=== PATIENT | female | born 1980 | race African-American/Black ===

== ENCOUNTER 2021-08-09 14:50 | Emergency (ER) | payer MEDICAID, SELFPAY ==
--- NOTE | ~2021-08-09 | XR_ITS ---
EXAMINATION:XR ankle LT 2V, XR foot LT 2V VIEWS ACQUIRED: Frontal lateral and oblique CLINICAL INFORMATION: Reason for Exam injury COMPARISON: None available at the time of this dictation. FINDINGS: There is soft tissue swelling around lateral malleolus. There is no evidence of acute fracture or dislocation. Intertarsal, tarsometatarsal, metatarsophalangeal and interphalangeal joints are intact. Surrounding soft tissues is normal. , Ankle mortise is preserved. Distal tibia and fibula included are normal. XR/XR ankle LT 2V IMPRESSION: Soft tissue swelling around lateral malleolus. Radiograph otherwise normal. No fracture.
--- NOTE | ~2021-08-09 | XR_ITS ---
EXAMINATION:XR ankle LT 2V, XR foot LT 2V VIEWS ACQUIRED: Frontal lateral and oblique CLINICAL INFORMATION: Reason for Exam injury COMPARISON: None available at the time of this dictation. FINDINGS: There is soft tissue swelling around lateral malleolus. There is no evidence of acute fracture or dislocation. Intertarsal, tarsometatarsal, metatarsophalangeal and interphalangeal joints are intact. Surrounding soft tissues is normal. , Ankle mortise is preserved. Distal tibia and fibula included are normal. XR/XR foot LT 2V IMPRESSION: Soft tissue swelling around lateral malleolus. Radiograph otherwise normal. No fracture.
[2021-08-09 15:07] VITALS: BP 123/56; PULSE 90; RESP 18; TEMP 36.4; O2SAT 100; BMI 37.1
--- NOTE | 2021-08-09 16:12 | ED_ITS ---
HPI - Extremity Injury (Lower) General Chief Complaint: Extremity Injury, Lower Stated Complaint: left foot injury Time Seen by Provider: 08/09/21 16:12 Source: patient and RN notes reviewed Mode of arrival: ambulatory Limitations: no limitations History of Present Illness HPI Narrative: Pt assisting pt 2 days ago at work and injured left ankle/foot. pt states pain since then with swelling, pain with ambulation Onset (ago): day(s) (2 days ago) Other symptoms: none Related Data Previous Rx's Medication Instructions Recorded ibuprofen 600 mg tablet 600 mg PO Q8H PRN #20 tab 08/09/21 Allergies Allergy/AdvReac Type Severity Reaction Status Date / Time acetaminophen Allergy Mild Itching Verified 08/09/21 15:06 [From Tylenol-Codeine] codeine Allergy Mild Itching Verified 08/09/21 15:06 [From Tylenol-Codeine] Review of Systems Verdana 4l Review of Systems: Verdana 4d Verdana 4d Constitutional : No trauma, No Weight loss, No Fever, No Chills, ENT/Mouth : No Hearing loss, No Ear Pain, No Nasal Congestion, No Sinus Pain, No Hoarseness, No sore throat, No Rhinorrhea, No Swallowing Difficulty Cardiovascular : No ChestChest Pain, No SOB Respiratory : No Cough, No Dyspnea Gastrointestinal : No Nausea, No Vomiting, No Diarrhea, No abdominal Pain, Musculoskeletal : no Back pain, No neck pain, Left ankle pain and swelling. Skin : No Skin Lesions, No rash or signs of infection Neuro : No Weakness, No radiation, No Numbness, No Paresthesias, No headache, Psych : No SI/HI/thoughts of self injury Yes all other systems are reviewed and are negative [facility] Past Medical History Attestation statement: The following information was validated with the patient. Social History Social History Advance Directives: No Advance Directives Information Provided: Yes Patient : No Physical Exam Verdana 4l Vital Signs: Verdana 4d Verdana 4d Vital Signs: Verdana 4d Verdana 4Bd Last Vital Signs Verdana 4d Warehouse Representative New 4d Warehouse Representative New 4d Temp 97.6 F 08/09/21 15:07 Warehouse Representative New 4d Pulse 90 08/09/21 15:07 Warehouse Representative New 4d Resp 18 08/09/21 15:07 BP 123/56 L 08/09/21 15:07 Pulse Ox 100 08/09/21 15:07 BMI result Body Mass Index 37.1 vital signs have been reviewed as normal and appeared to be correct.? Blood pressure elevated.? Heart rate normal.? Respiration rate normal.? Temperature normal.? Oxygen saturation normal. ? ? ?PE GENERAL Appearance: Alert. Oriented X3. No acute distress. ? Head: Normal external exam. Normocephalic. Atraumatic.? Eyes: PERRLA. EOMI. Conjunctiva and sclera normal. Eyelids normal. ? ENT: EAC normal. TMs Normal. Pharynx normal. Uvula midline. Moist mucous membranes. ? CVS: Normal heart rate and rhythm. Respiratory: No respiratory distress. Painless inspiration. Back: ? Full range of motion noted. Skin: Skin warm and dry.? Normal skin color.? Normal skin turgor. No rashes/lesions/lacerations noted. Extremities: left ankle tenderness to palpation over lateral malleoli, no laxity on exam. moderate edema over lateral malleoli, no ecchymosis. Extremities exhibit normal range of motion.? Extremities nontender. Normal gait Neuro: Oriented X 3.? No motor deficit noted. No sensory deficit noted. Course Course Course Narrative: patients xrays results reviewed with pt and plan to follow up with employer work connection discussed with pt. Note to return to work with restrictions given. pt agrees with plan. MDM - Extremity Injury (Lower) Imaging Data ankle left xray: Radiologist's impression: [place] [id number] XRay Report Signed Patient: Breezy MR#: [id number] : 1980 Acct:[id number] Age/Sex: 40 / F ADM Date: 08/09/21 Loc: HO.ED Attending Dr: Ordering Physician: Generic ED Physician Date of Service: 08/09/21 Procedure(s): XR ankle LT 2V Accession Number(s): [id number] cc: Generic ED Physician~ EXAMINATION:XR ankle LT 2V, XR foot LT 2V VIEWS ACQUIRED: Frontal lateral and oblique CLINICAL INFORMATION: Reason for Exam injury COMPARISON: None available at the time of this dictation. FINDINGS: There is soft tissue swelling around lateral malleolus. There is no evidence of acute fracture or dislocation.? Intertarsal, tarsometatarsal, metatarsophalangeal and interphalangeal joints are intact. Surrounding soft tissues is normal. , Ankle mortise is preserved. Distal tibia and fibula included are normal. XR/XR ankle LT 2V IMPRESSION: Soft tissue swelling around lateral malleolus. Radiograph otherwise normal. ? No fracture. Discharge Plan Discharge Clinical Impression: Ankle sprain and strain Patient Disposition: Home, Self-Care Instructions: Ankle Sprain (ED) Additional Instructions: use margo wrap and crutches as shown by nurse. okay to apply ice over margo wrap. Call your employer for appropriate follow up for work related injury. return if worse. Prescriptions: New ibuprofen 600 mg tablet 600 mg PO Q8H PRN (Reason: pain) Qty: 20 0RF Referrals: Physician,Unknown J [Primary Care Provider] - 2 days Stand Alone Forms: Work/School Release Interventions: ED Discharge Assessment Last Done: 08/09/21 17:08
== END 2021-08-09 17:08 | disposition home or self-care (01) ==
PROVIDERS: Emergency Provider Emergency Medicine
DX: S93.402A Sprain of unspecified ligament of left ankle, initial encounter (principal); M25.572 Pain in left ankle and joints of left foot; M79.672 Pain in left foot; W01.0XXA Fall on same level from slipping, tripping and stumbling without subsequent striking against object, initial encounter; Y93.9 Activity, unspecified; Y92.9 Unspecified place or not applicable; Y99.0 Civilian activity done for income or pay; Z79.899 Other long term (current) drug therapy
CPT/HCPCS: 73600; 73620; 99283

== ENCOUNTER 2021-08-12 19:45 | Emergency (ER) | payer MEDICAID, SELFPAY ==
--- NOTE | ~2021-08-12 | US_ITS ---
EXAMINATION: US PELVIS CLINICAL INFORMATION: Menorrhagia and pain COMPARISON: CT abdomen pelvis 02/23/2020 pelvic ultrasound 04/03/2015 TECHNIQUE: Ultrasound of the pelvis is performed using both transabdominal and transvaginal transducers along with Doppler. Transvaginal imaging is performed due to inadequate visualization transabdominally. FINDINGS: Uterus: The uterus is anteverted and measures 10.0 x 6.0 x 7.1 cm. The double wall endometrial thickness is 0.5 mm. The uterus is smooth in contour and has normal myometrial echogenicity. A fundal submucosal fibroid measuring 2.7 x 2.6 x 2.8 cm is seen. On the prior CT this can be seen to measure 3.0 x 2.8 x 2.8 cm, about the same size. Nabothian cysts are present in the cervix. Adnexa: Both ovaries are visualized. There is normal color flow to the adnexa. There is no ovarian torsion. There is a small amount of free fluid present in the cul-de-sac Right ovary measures 3.0 x 2.2 x 2.0 cm for a volume of 7 mL. Left ovary measures 2.6 x 1.9 x 2.6 cm for a volume of 6.7 mL. US/US pelvic and transvaginal IMPRESSION: Redemonstration of a 2.8 cm submucosal uterine fibroid.
[2021-08-12 19:48] VITALS: BP 118/62; PULSE 93; RESP 16; TEMP 36.4; O2SAT 100; BMI 33.9
[2021-08-12 20:17] LABS: Appearance Urine CLOUDY; Color Urine DK YELLOW; Glucose Urine UA NEG (NEG); Leukocyte Esterase Urine NEG (NEG); Nitrite Urine POS (NEG); Specific Gravity - Urine >= 1.030 (1.005-1.025); UACC Culture Trigger YES; Urine Blood 3+ (NEG); Urine Ketones NEG (NEG); Urine Protein 2+ MG/DL (NEG-TRACE)
[2021-08-12 20:19] LABS: Urine Pregnancy NEGATIVE (NEGATIVE)
[2021-08-12 20:20] LABS: UPreg QC Valid YES
[2021-08-12 20:25] LABS: Bacteria Urine 1+ /LPF; RBC Urine TNTC /HPF (0); Squamous Epithelial Cell Urine 1+ /LPF; UACC CULT YES; WBC Urine 0 /HPF (0-4)
[2021-08-12 20:32] LABS: Imm Gran Abs Auto 0.02 X10*3/uL (0.00-0.03); Imm Gran Pct Auto 0.3 % (0.0-0.4); Lymphocytes Absolute Auto 1.6 X10*3/uL (1.2-4.9); MANUAL DIFF FLAG SCAN; Mean Corpuscular HGB Conc 29.2 g/dl (31.0-35.0); Mean Corpuscular Hemoglobin 21.4 pg (27.0-33.0); SCAN SMEAR FLAG 1
[2021-08-12 20:34] LABS: Basophils Percent Auto 0.3 % (0-2); Eosinophils Absolute Auto 0.1 X10*3/uL (0.0-0.4); Eosinophils Percent Auto 1.3 % (0-4); Hematocrit 24.3 % (37.0-47.0); Hemoglobin 7.1 g/dl (12.0-16.0); Mean Corpuscular Volume 73.2 fL (80.0-98.0); Mean Platelet Volume 10.7 fL (9.4-12.3); Monocytes Absolute Auto 0.4 X10*3/uL (0.1-1.2); Monocytes Percent Auto 6.8 % (2-11); Neutrophils Absolute Auto 3.9 x10*3/uL (2.0-8.3); Neutrophils Percent Auto 65.3 % (45-73); Platelet Count 230 X10*3/uL (160-400); Red Blood Count 3.32 X10*6/uL (4.20-5.50); Red Cell Distribution Width 19.1 % (11.0-16.0)
[2021-08-12 20:46] LABS: PLT ABN DIST 1
[2021-08-12 20:56] LABS: Alanine Aminotransferase 18 U/L (0-31); Albumin Level 3.9 g/dL (3.5-5.0); Alkaline Phosphatase 68 U/L (39-117); Anion Gap 9 (12-20); Aspartate Amino Transferase 13 U/L (5-31); Bilirubin Total 0.2 mg/dL (0.0-1.0); Blood Urea Nitrogen 12 mg/dL (9-16); Calcium 8.7 mg/dL (8.4-10.2); Carbon Dioxide 25 mmol/L (22-29); Chloride 110 mmol/L (96-108); Creatinine Clr Calc Pharmacy 118.3; Estimated Glomerular Filt Rate > 60; Glucose Random 103 mg/dL (60-115); Potassium 4.1 mmol/L (3.3-5.1); Sodium 140 mmol/L (135-145); Total Protein 6.7 g/dL (6.5-8.0)
[2021-08-12 21:03] LABS: SLIDE REVIEW VERIFIED
[2021-08-12 21:46] VITALS: BP 128/54; PULSE 102; RESP 16; TEMP 36.9; O2SAT 100
--- NOTE | 2021-08-12 22:21 | ED_ITS ---
HPI - General Adult General Chief complaint: General Medical Stated complaint: Foot pain, Womb pain Time Seen by Provider: 08/12/21 21:44 Source: patient Mode of arrival: ambulatory History of Present Illness HPI narrative: 40-year-old female with past medical history of asthma as well as menorrhagia and iron deficiency anemia presents with having received most of her care at [facility] with onset increased vaginal bleeding since Tuesday. Patient states that she has recently had a uterine polypectomy and that she ?stop bleeding for a little while? but then on Tuesday started in she is using between 8-10 Kotex daily. She states that she had to receive a blood transfusion with iron infusion previously. Patient states she feels a little lightheaded. Related Data Home Medications Medication Instructions Recorded Confirmed ferrous sulfate 325 mg (65 mg 1 tab PO BID 08/12/21 08/12/21 iron) tablet norethindrone acetate 5 mg tablet 5 mg PO 08/12/21 Allergies Allergy/AdvReac Type Severity Reaction Status Date / Time acetaminophen Allergy Mild Itching Verified 08/09/21 15:06 [From Tylenol-Codeine] codeine Allergy Mild Itching Verified 08/09/21 15:06 [From Tylenol-Codeine] Review of Systems Verdana 4l Review of Systems: Verdana 4d Pertinent positives and Verdana 4d negatives as stated in HPI 10 point review of systems is otherwise negative. Verdana 4d PMFSH Past Medical History Source: nursing notes reviewed Social History Social History Advance Directives: No Patient : No Physical Exam Verdana 4l Vital Signs: Verdana 4d Verdana 4d Vital Signs: Verdana 4d Verdana 4Bd Last Vital Signs Verdana 4d Crime Prevention Worker New 4d Crime Prevention Worker New 4d Temp 98.4 F 08/12/21 21:46 Crime Prevention Worker New 4d Pulse 102 H 08/12/21 21:46 Crime Prevention Worker New 4d Resp 16 08/12/21 21:46 BP 128/54 L 08/12/21 21:46 Pulse Ox 100 08/12/21 21:46 BMI result Body Mass Index 33.9 VITAL SIGNS: Reviewed. GENERAL: Well developed, well nourished, in no acute distress. HEAD: Normocephalic/atraumatic EYES: PERRLA, EOMI intact without pain, no pallor appreciated EARS: Ext canals without abnormality NOSE: Nares patent bilateral OROPHARYNX: no oral lesions noted, posterior pharynx clear LUNGS: Normal breath sounds. No adventitious sounds or accessory muscle use. SpO2<100> CARDIOVASCULAR: Regular rate and rhythm without noted murmurs, no JVD or lower extremity edema. ABDOMEN: Soft, non-tender, non-distended with bowel sounds. SKIN: Inspection of the skin reveals no rashes NEUROLOGIC: Alert and oriented x 4. Strength and sensation to light touch were grossly intact x 4. Course Course Course Narrative: 40-year-old female with history and clinical presentation consistent with menorrhagia and currently on appropriate course of medical intervention with norethindrone and iron supplementation. Will discussed with patient regarding blood transfusion. I discussed the case with on-call gynecology who agrees with blood transfusion and states that current hormone dosage is appropriate. Regarding patient's concern regarding left ankle pain is consistent with recent diagnosis sprained ankle. Review of all investigations redemonstrates iron deficiency anemia and patient is currently on appropriate medication as well as iron supplementation and despite extensive conversation regarding blood transfusion she is declining at this time. She was encouraged to follow-up with her primary care provider to discuss regular outpatient scheduling for IV iron transfusion as indicated. Medical Decision Making Lab Data Result diagrams: 08/12/21 20:25 08/12/21 20:25 Labs: Lab Results 08/12/21 08/12/21 08/12/21 Range/Units 20:10 20:10 20:25 WBC 6.0 (4.8-10.8) X10*3/uL RBC 3.32 L (4.20-5.50) X10*6/uL Hgb 7.1 L (12.0-16.0) g/dl Hct 24.3 L (37.0-47.0) % MCV 73.2 L (80.0-98.0) fL MCH 21.4 L (27.0-33.0) pg MCHC 29.2 L (31.0-35.0) g/dl RDW 19.1 H (11.0-16.0) % Plt Count 230 (160-400) X10*3/uL MPV 10.7 (9.4-12.3) fL Immature Gran % (Auto) 0.3 (0.0-0.4) % Neut % (Auto) 65.3 (45-73) % Lymph % (Auto) 26.0 (20-40) % Summers % (Auto) 6.8 (2-11) % Eos % (Auto) 1.3 (0-4) % Baso % (Auto) 0.3 (0-2) % Lymph # (Auto) 1.6 (1.2-4.9) X10*3/uL Summers # (Auto) 0.4 (0.1-1.2) X10*3/uL Eos # (Auto) 0.1 (0.0-0.4) X10*3/uL Baso # (Auto) 0.0 (0.0-0.2) X10*3/uL Abs Immat Gran (auto) 0.02 (0.00-0.03) X10*3/uL Absolute Neuts (auto) 3.9 (2.0-8.3) x10*3/uL Absolute Nucleated RBC 0.000 (0.0-0.012) X10*3/uL Nucleated RBC % (auto) 0.0 (0.0-0.2) /100WBC Smear Tech's Comments VERIFIED Sodium (135-145) mmol/L Potassium (3.3-5.1) mmol/L Chloride (96-108) mmol/L Carbon Dioxide (22-29) mmol/L Anion Gap (12-20) BUN (9-16) mg/dL Creatinine (0.5-1.4) mg/dL Estim Creat Clear Calc Estimated GFR Random Glucose (60-115) mg/dL Calcium (8.4-10.2) mg/dL Total Bilirubin (0.0-1.0) mg/dL AST (5-31) U/L ALT (0-31) U/L Alkaline Phosphatase (39-117) U/L Total Protein (6.5-8.0) g/dL Albumin (3.5-5.0) g/dL Urine Color DK YELLOW Urine Appearance CLOUDY Urine pH 5.0 (5.0-8.0) Ur Specific [place] >= 1.030 H (1.005-1.025) Urine Protein 2+ H (NEG-TRACE) MG/DL Urine Glucose (UA) NEG (NEG) MG/DL Urine Ketones NEG (NEG) MG/DL Urine Blood 3+ H (NEG) Urine Nitrite POS H (NEG) Ur Leukocyte Esterase NEG (NEG) Urine RBC TNTC H (0) /HPF Urine WBC 0 (0-4) /HPF Ur Squamous Epith 1+ /LPF Cells Urine Bacteria 1+ /LPF Urine Yeast 1+ /HPF Urine Test NEGATIVE (NEGATIVE) 08/12/21 Range/Units 20:25 WBC (4.8-10.8) X10*3/uL RBC (4.20-5.50) X10*6/uL Hgb (12.0-16.0) g/dl Hct (37.0-47.0) % MCV (80.0-98.0) fL MCH (27.0-33.0) pg MCHC (31.0-35.0) g/dl RDW (11.0-16.0) % Plt Count (160-400) X10*3/uL MPV (9.4-12.3) fL Immature Gran % (Auto) (0.0-0.4) % Neut % (Auto) (45-73) % Lymph % (Auto) (20-40) % Summers % (Auto) (2-11) % Eos % (Auto) (0-4) % Baso % (Auto) (0-2) % Lymph # (Auto) (1.2-4.9) X10*3/uL Summers # (Auto) (0.1-1.2) X10*3/uL Eos # (Auto) (0.0-0.4) X10*3/uL Baso # (Auto) (0.0-0.2) X10*3/uL Abs Immat Gran (auto) (0.00-0.03) X10*3/uL Absolute Neuts (auto) (2.0-8.3) x10*3/uL Absolute Nucleated RBC (0.0-0.012) X10*3/uL Nucleated RBC % (auto) (0.0-0.2) /100WBC Smear Tech's Comments Sodium 140 (135-145) mmol/L Potassium 4.1 (3.3-5.1) mmol/L Chloride 110 H (96-108) mmol/L Carbon Dioxide 25 (22-29) mmol/L Anion Gap 9 L (12-20) BUN 12 (9-16) mg/dL Creatinine 0.72 (0.5-1.4) mg/dL Estim Creat Clear Calc 118.3 Estimated GFR > 60 Random Glucose 103 (60-115) mg/dL Calcium 8.7 (8.4-10.2) mg/dL Total Bilirubin 0.2 (0.0-1.0) mg/dL AST 13 (5-31) U/L ALT 18 (0-31) U/L Alkaline Phosphatase 68 (39-117) U/L Total Protein 6.7 (6.5-8.0) g/dL Albumin 3.9 (3.5-5.0) g/dL Urine Color Urine Appearance Urine pH (5.0-8.0) Ur Specific [place] (1.005-1.025) Urine Protein (NEG-TRACE) MG/DL Urine Glucose (UA) (NEG) MG/DL Urine Ketones (NEG) MG/DL Urine Blood (NEG) Urine Nitrite (NEG) Ur Leukocyte Esterase (NEG) Urine RBC (0) /HPF Urine WBC (0-4) /HPF Ur Squamous Epith Cells /LPF Urine Bacteria /LPF Urine Yeast /HPF Urine Test (NEGATIVE) Discharge Plan Discharge Clinical Impression: Menorrhagia, Submucous uterine fibroid, Iron deficiency anemia Patient Disposition: Home, Self-Care Instructions: Menorrhagia (ED), Iron Deficiency Anemia (ED), Iron Rich Diet (ED), R.I.C.E. Treatment (ED), Ankle Sprain (ED) Additional Instructions: Follow-up with your primary care provider/shuttle preparation supervisor for further outpatient management. Continue with your medications as prescribed. Return to the ER for any worsening of symptoms. Prescriptions: No Action ferrous sulfate 325 mg (65 mg iron) tablet 1 tab PO BID 0RF norethindrone acetate 5 mg tablet 5 mg PO 0RF
--- NOTE | 2021-08-12 23:09 | P.CONOB_ITS ---
CANCER GENETICS ASSISTANT - CN: HPI Data of Consult Consult date: 08/12/21 Primary Care Provider: Unknown Physician Consult Narrative Narrative: I was consulted on October who is a 40 year old female with history of menorrhagia and iron deficiency anemia presents with onset increased vaginal bleeding since Tuesday.? Patient states that she has recently had a endometrial polypectomy (pathology of the polyp and the new team was benign) and that she improved her uterine bleeding for a little while but starting Tuesday started worsening of her vaginal bleeding.? The patient gives a history of blood transfusion with iron infusion previously. The following workup was done: Urine test is negative, H&H 7.1/24.3, pelvic ultrasound showed 2.8 cm submucosal myoma. The patient has been on 5 mg of norethindrone of the last few weeks. The patient is interested in future fertility cc:: CC: OUTSIDE PARTS SALESMAN - Review of Systems Review of Systems ROS Unobtainable: All systems reviewed & are unremarkable except as noted in HPI and below OB PMFSH Social History Social History Advance Directives: No Patient : No Meds Allergies Allergy/AdvReac Type Severity Reaction Status Date / Time acetaminophen Allergy Mild Itching Verified 08/09/21 15:06 [From Tylenol-Codeine] codeine Allergy Mild Itching Verified 08/09/21 15:06 [From Tylenol-Codeine] Home Medications Medication Instructions Recorded Confirmed Last Taken Type ferrous sulfate 325 1 tab PO BID 08/12/21 08/12/21 Unknown History mg (65 mg iron) tablet norethindrone 5 mg PO 08/12/21 Unknown History acetate 5 mg tablet CANCER GENETICS ASSISTANT Physical Exam Vitals Vital signs: Temp Pulse Resp BP Pulse Ox 98.4 F 102 H 16 128/54 L 100 08/12/21 21:46 08/12/21 21:46 08/12/21 08/12/21 08/12/21 21:46 21:46 21:46 BMI result Verdana 4 Body Mass Index Verdana 4 33.9 Verdana 4 Verdana 4 Female Genitalia (Pelvic) Bladder/Urethra: Normal meatus Vulva: No lesions Vagina: Nontender and No lesions Cervix: No cervical motion tenderness Uterus: Normal size Adnexa/Parametria: Adnexal Tenderness: None, Adnexal Mass: None, Parametrial Tenderness: None and Parametrial Mass: None Additional Comments: Small blood clots in the vagina with no evidence of active bleeding CANCER GENETICS ASSISTANT - Results Labs CBC & Chem 7: 08/12/21 20:25 08/12/21 20:25 Labs: Short CBC 08/12/21 Range/Units 20:25 WBC 6.0 (4.8-10.8) X10*3/uL Hgb 7.1 L (12.0-16.0) g/dl Hct 24.3 L (37.0-47.0) % Plt Count 230 (160-400) X10*3/uL BMP 08/12/21 20:25 Sodium 140 Potassium 4.1 Chloride 110 H Carbon Dioxide 25 BUN 12 Creatinine 0.72 Calcium 8.7 Liver Function 08/12/21 Range/Units 20:25 Total Bilirubin 0.2 (0.0-1.0) mg/dL AST 13 (5-31) U/L ALT 18 (0-31) U/L Alkaline Phosphatase 68 (39-117) U/L Albumin 3.9 (3.5-5.0) g/dL Urine 08/12/21 08/12/21 Range/Units 20:10 20:10 Urine Color DK YELLOW Urine Appearance CLOUDY Urine pH 5.0 (5.0-8.0) Ur Specific [place] >= 1.030 H (1.005-1.025) Urine Protein 2+ H (NEG-TRACE) MG/DL Urine Glucose (UA) NEG (NEG) MG/DL Urine Test NEGATIVE (NEGATIVE) Imaging US - abdomen: Radiologist's impression: ITS Impressions Pelvic/Transvag US 08/12/21 22:42 IMPRESSION: Redemonstration of a 2.8 cm submucosal uterine fibroid. Assessment and Plan (1) Abnormal uterine bleeding (AUB): Status: Acute Plan Discussed with the patient different options of treatment including but not limited to norethindrone/Provera, the following options were discussed with the patient buto are contraindicated in her case since she is interested in future fertility : Uterine other embolization, endometrial ablation, control pills, levonorgestrel IUD and others Recommended to the patient 1 unit of blood transfusion, the patient agreed, iron sulfate 325 mg p.o. t.i.d., Increase norethindrone dose to 10 mg p.o. q.d., and follow-up in the morning with her senior underwriting assistant for further treatment. All questions answered, the patient verbalized understanding. Discussed the case and the plan of treatment with the ER physician Dr. Briceno
[2021-08-13 00:38] VITALS: BP 99/53; PULSE 79; RESP 16; TEMP 36.8; O2SAT 99
[2021-08-13] MEDS: diphenhydrAMINE HCL 25 MG TABLET PO (00:53)
[2021-08-13] MEDS: Acetaminophen 325 MG TABLET 975 MG PO (00:53)
[2021-08-13] MEDS: Ketorolac Tromethamine 30 MG/ML VIAL 15 MG IM (00:53)
[2021-08-13 01:29] VITALS: BP 100/39; PULSE 84; RESP 18; TEMP 36.6
[2021-08-13 01:48] VITALS: BP 108/41; PULSE 87; RESP 16; TEMP 36.7
--- NOTE | 2021-08-13 03:23 | PC.NURSE ---
Assumed care of pt Pt tolerating blood transfusion Pt resting on stretcher with eyes closed. Breathing even and unlabored NAD Will continue to monitor
[2021-08-13 03:55] VITALS: BP 115/86; PULSE 68; RESP 20; TEMP 36.6
== END 2021-08-13 04:08 | disposition home or self-care (01) ==
PROVIDERS: Emergency Provider Student in an Organized Health Care Education/Training Program
DX: D25.0 Submucous leiomyoma of uterus (principal); D50.9 Iron deficiency anemia, unspecified; N93.9 Abnormal uterine and vaginal bleeding, unspecified; M79.672 Pain in left foot; M79.671 Pain in right foot
CPT/HCPCS: 36415; 36430; 76830; 76856; 80053; 81001; 81025; 85025; 86850; 86900; 86901; 86923; 87086; 87147; 96372; 99284; 99285; J1885; P9016; Q0163

== ENCOUNTER 2021-12-18 17:23 | Emergency (ER) | payer MEDICAID, SELFPAY ==
--- NOTE | ~2021-12-18 | XR_ITS ---
EXAMINATION: XR CHEST CLINICAL INFORMATION: Cough COMPARISON: None TECHNIQUE: 2 views of the chest were obtained. FINDINGS: Cardiac silhouette is normal in size. The lungs are well aerated. Suspected approximately 3 cm subtle nonspecific density projecting over the left upper lung, likely posterior in location. No gross pleural effusion or pneumothorax. No acute osseous abnormality. XR/XR chest 2V IMPRESSION: Suspected 3 cm nodular density of the left upper lung. It is possible this represents attenuation artifact, however, lateral radiograph also suggests a nodular density posteriorly. CT imaging of the chest is recommended for further evaluation.
[2021-12-18 18:51] VITALS: BP 126/82; PULSE 90; RESP 16; TEMP 36.9; O2SAT 98; BMI 36.4
--- NOTE | 2021-12-18 19:38 | ED.ASTHMA ---
HPI - Asthma General Chief Complaint: Upper Respiratory Symptoms Stated Complaint: Diff breathing Time Seen by Provider: 12/18/21 19:17 Source: patient and family (Daughter and son at bedside) Mode of arrival: ambulatory Limitations: no limitations History of Present Illness HPI Narrative: 41-year-old female with a past medical history of asthma currently on albuterol inhaler presenting to the ED with complaints of dry cough with shortness of breath/wheezing, nasal congestion/rhinorrhea and sore throat for the past 3 months that has been intermittent. She reports she has been using breathing treatments and albuterol inhaler at home and no symptomatic relief. Reports that she believes this is related to possible Mold, something in the pipes of her house and mouse droppings in her house she has told her landlord and has reported him to the [facility] and they have not done anything for this. She reports that she went to the urgent care a few times in the past 3 months and she was given cough medicine, albuterol inhaler, nebulized solutions and a Z-Zaid and still no symptomatic relief. She has also tried Claritin and [id number] med allergy medication no symptomatic relief. She is concerned that there is something in her lungs. She reports she even got rid of her dog and still having the symptoms. 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 She denies any fevers, chills, dizziness, headaches, neck pain/stiffness, chest pain, dyspnea on exertion, orthopnea, palpitations, paresthesias, sputum production, nausea/vomiting/diarrhea constipation, rashes, recent falls or trauma, lower extremity edema or calf tenderness, history of DVT or PE, recent mobilizations surgery, PVD disease or any other symptoms complaints or concerns at this time. MD complaint: asthma attack , shortness of breath and wheezing Onset (ago): month(s) (3) Severity: mild and similar to prior Context: other (Mold, something in the pipes of her house and mouse droppings in her house) Associated symptoms: dry cough Asthma History: childhood onset Treatments Prior to Arrival: inhaled bronchodilator Related Data Current Asthma Therapy: inhaled bronchodilator Home Medications Medication Instructions Recorded Confirmed ferrous sulfate 325 mg (65 mg 1 tab PO BID 08/12/21 08/12/21 iron) tablet norethindrone acetate 5 mg tablet 5 mg PO 08/12/21 Previous Rx's Medication Instructions Recorded albuterol sulfate 0.63 mg/3 mL 0.63 mg (3 mL) inhalation QID PRN 12/18/21 solution for nebulization shortness of breath or wheezing #75 mL albuterol sulfate 90 mcg/actuation 1 inh inhalation QID PRN shortness 12/18/21 aerosol inhaler of breath or wheezing #8.5 grams doxycycline monohydrate 100 mg 100 mg PO BID 10 days #20 tabs 12/18/21 tablet prednisone 20 mg tablet 40 mg PO DAILY rash 5 days #10 tabs 12/18/21 Allergies Allergy/AdvReac Type Severity Reaction Status Date / Time acetaminophen Allergy Mild Itching Verified 08/09/21 15:06 [From Tylenol-Codeine] codeine Allergy Mild Itching Verified 08/09/21 15:06 [From Tylenol-Codeine] Review of Systems Review of Systems: Constitutional : denies med noncompliance, no history of PE or DVT, denies recent travel, No Fever, No Chills ENT/Mouth : + sore throat/nasal congestion/rhinorrhea, No Hoarseness, No Sinus Pressure, No Ear Pain, No stridor, Eyes: No Redness, No Discharge, No Vision Changes Cardiovascular : No Chest Pain, No SOB, No Dyspnea on Exertion, No Edema, no pleurisy, Respiratory : + Cough, + wheezing, No Sputum, no stridor, no hemoptysis, Gastrointestinal : No Nausea, No Vomiting, No Diarrhea, No abdominal Pain Genitourinary : No Dysuria, No Hematuria Musculoskeletal : No joint pain/swelling, No Myalgias Extremities: no extremity swelling /pain Skin : No rash, no itching, no swelling Neuro : No Weakness, No Numbness, No Headache, No Dizziness, No Paresthesias Psych : No anxiety, depression Heme/Lymph: No Bruising, No Bleeding Endocrine : No Polyuria, No Polydipsia Yes all other systems are reviewed and are negative [facility] Past Medical History Attestation statement: The following information was validated with the patient. Source: old records reviewed, obtained from family and nursing notes reviewed Social History Social History Advance Directives: No Advance Directives Information Provided: No Physical Exam Vital Signs: Vital Signs: Last Vital Signs Temp 98.5 F 12/18/21 18:51 Pulse 90 12/18/21 18:51 Resp 16 12/18/21 18:51 BP 126/82 12/18/21 18:51 Pulse Ox 98 12/18/21 18:51 O2 Del Method 12/18/21 18:51 BMI result Body Mass Index 36.4 vital signs have been reviewed as normal and appeared to be correct. Blood pressure normal. Heart rate normal. Respiration rate normal. Temperature normal. Oxygen saturation normal. Appearance: Alert. Oriented X3. No acute distress. Head: Normal external exam. Normocephalic. Atraumatic. Eyes: PERRLA. EOMI. Conjunctiva and sclera normal. Eyelids normal. ENT: EAC normal. TM's Normal. Pharynx normal. Uvula midline. Moist mucous membranes. No lesions/ulcerations or masses noted on the tongue. Normal voice. No trismus noted. No drooling noted. No muffled voice noted. Neck: Normal inspection. Neck supple. FROM. No adenopathy. Thyroid Normal. No tracheal deviation noted. No crepitus is noted. No meningeal signs. No neck mass noted. No signs of trauma noted. CVS: Normal heart rate and rhythm. Heart sound normal. Pulses normal throughout. No murmurs/rales/gallops. Respiratory: No respiratory distress. Painless inspiration. Breath sounds normal. No wheezes/rales/rhonchi noted. Chest nontender. No crepitus is noted. No signs of trauma noted. No accessory muscle usage noted or decreased air movement noted. No signs of trauma. Abdomen: Soft and nontender. Bowel sounds normal in all 4 quadrants. No distention noted. No organomegaly noted. No visible injury noted. Back: Full range of motion noted. Skin: Skin warm and dry. Normal skin color. Normal skin turgor. No rashes/lesions/lacerations noted. Extremities: No lower extremity edema. No calf tenderness is noted. Extremities exhibit normal range of motion and nontender. Neuro: Oriented X 3. No motor deficit. No sensory deficit. Reflexes normal. Normal steady gait. No focal neuro deficits noted. CN's II-XII intact bilaterally? Vascular: + radial pulses/+ 2 distal pedal pulses/+2 dorsalis pedis b/l. Normal cap refill. No cyanosis noted to upper extremity nails and lower extremity toes nails. Course Course Course Narrative: 19:46pm - 41-year-old female c PMHX of asthma currently on albuterol inhaler presenting to the ED with complaints of dry cough with shortness of breath/wheezing, nasal congestion/rhinorrhea and sore throat for the past 3 months that has been intermittent. She reports she has been using breathing treatments and albuterol inhaler at home and no symptomatic relief. Reports that she believes this is related to possible Mold, something in the pipes of her house and mouse droppings in her house she has told her landlord and has reported him to the [facility] and they have not done anything for this. She reports that she went to the urgent care a few times in the past 3 months and she was given cough medicine, albuterol inhaler, nebulized solutions and a Z-Zaid and still no symptomatic relief. She has also tried Claritin and [id number] med allergy medication no symptomatic relief. She is concerned that there is something in her lungs. She reports she even got rid of her dog and still having the symptoms. 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 Plan: Will obtain chest x-ray as patient is requesting it. Will obtain a COVID and influenza swab. If negative patient will be discharged with antibiotics for possible bronchitis with steroids and albuterol inhaler and cough medicine for asthma exacerbation with instructions to follow-up with PCP and to return if any new or worsening symptoms. Patient understands agrees with this plan. Reevaluation(s) Reevaluation #1: - patient negative for influenza and COVID. Chest x-ray revealed suspected 3 cm nodular density of left upper lung and there are recommending CT scan of chest for further evaluation treatment. Patient can have this as an outpatient basis with her PCP. Instructed patient to return if any new or worsening symptoms follow up with her PCP due to this 3 cm pulmonary nodule. Patient understands agrees with this plan. Time: 20:31 [facility] - Asthma Medical Records Attestation: I reviewed the patient's medical records. Lab Data Attestation: I reviewed the patient's lab results. Labs: Lab Results 12/18/21 12/18/21 Range/Units 19:15 19:15 COVID-19 (JANNA) Negative (Negative) COVID-19 Clin Com See Note Influenza Type A (SHOSHANA) Negative (Negative) Influenza Type B (SHOSHANA) Negative (Negative) Influenza A & B Note See Note Imaging Data Chest x-ray: Attestation: I personally reviewed and interpreted this imaging study as follows: Radiologist's impression: FINDINGS: Cardiac silhouette is normal in size. The lungs are well aerated. Suspected approximately 3 cm subtle nonspecific density projecting over the left upper lung, likely posterior in location. No gross pleural effusion or pneumothorax. No acute osseous abnormality. XR/XR chest 2V IMPRESSION: Suspected 3 cm nodular density of the left upper lung. It is possible this represents attenuation artifact, however, lateral radiograph also suggests a nodular density posteriorly. CT imaging of the chest is recommended for further evaluation. Discharge Plan Discharge Clinical Impression: Bronchitis, Asthma exacerbation, Incidental pulmonary nodule Patient Disposition: Home, Self-Care Instructions: Asthma (ED), Acute Bronchitis (ED), Pulmonary Nodules (ED) Additional Instructions: You will need a CT scan of your chest for further evaluation treatment of your pulmonary nodule. Follow-up with your primary care provider as soon as possible for this. Return if any new or worsening symptoms. Prescriptions: New doxycycline monohydrate 100 mg tablet 100 mg PO BID 10 Days Qty: 20 0RF albuterol sulfate 90 mcg/actuation HFA aerosol inhaler 1 inh inhalation QID PRN (Reason: shortness of breath or wheezing) Qty: 8.5 0RF albuterol sulfate 0.63 mg/3 mL solution for nebulization 0.63 mg inhalation QID PRN (Reason: shortness of breath or wheezing) Qty: 75 0RF prednisone 20 mg tablet 40 mg PO DAILY 5 Days Qty: 10 0RF No Action ferrous sulfate 325 mg (65 mg iron) tablet 1 tab PO BID norethindrone acetate 5 mg tablet 5 mg PO Referrals: Physician,Unknown J [Primary Care Provider] - 2 days (your pcp call to make a follow-up appointment within 1 week) Stand Alone Forms: Work/School Release Print Language: Peruvian
[2021-12-18 19:39] LABS: COVID-19 Test Negative (Negative); IDNOW Serial# 08D9AD1C; Influenza A Negative (Negative); Influenza B2 Negative (Negative)
== END 2021-12-18 21:29 | disposition home or self-care (01) ==
PROVIDERS: Emergency Provider Emergency Medicine
DX: J45.901 Unspecified asthma with (acute) exacerbation (principal); J40 Bronchitis, not specified as acute or chronic; R91.1 Solitary pulmonary nodule; Z79.899 Other long term (current) drug therapy; Z20.822 Contact with and (suspected) exposure to COVID-19
CPT/HCPCS: 71046; 87502; 87635; 96360; 99282; 99284